=== PATIENT | female | born 1960 | race Caucasian/White ===

== ENCOUNTER 2022-06-01 09:13 | Outpatient (REF) | payer OTHER, SELFPAY ==
--- NOTE | ~2022-06-01 | CT_ITS ---
EXAMINATION: CT MAXILLOFACIAL WITHOUT CONTRAST CLINICAL INFORMATION: Deviated nasal septum. Nasal polyp. COMPARISON: None. TECHNIQUE: Multidetector helical imaging was performed in the axial plane with generation of coronal and sagittal reformatted images. This CT examination was performed using dose optimization techniques as appropriate, variously including the following: *Automated exposure control *Adjustment of mA and/or kV according to patient size (this includes techniques or standardized protocols for targeted exams where dose is matched to indication/reason for exam; i.e. extremities or head) *Use of iterative reconstruction technique DLP: 90 mGy-cm. FINDINGS: The frontal sinuses are clear. The ethmoid air cells are clear. The sphenoid sinuses are clear. Maxillary sinuses and ethmoidal infundibula are clear. The nasal septum is deviated towards the right. The ethmoid roofs are symmetric. The lamina papyracea are intact. The carotid impressions are covered with within bone. No maxillary periapical disease is seen. The mastoid air cells and visualized middle ear cavities are well aerated. The orbits are normal. The TMJs are unremarkable. The imaged portions of the brain demonstrate no acute abnormality. CT/CT sinus wo IV con IMPRESSION: Paranasal sinuses are clear without fluid levels. Rightward deviation of the nasal septum.
== END 2022-06-01 09:14 | disposition home or self-care (01) ==
LOC: HO.CT 09:13
PROVIDERS: Visit Provider Otolaryngology
DX: J33.0 Polyp of nasal cavity (principal); J34.2 Deviated nasal septum
CPT/HCPCS: 70486